=== PATIENT | female | born 1960 | race Caucasian/White ===

== ENCOUNTER 2016-04-15 11:42 | Outpatient (CLI) | payer MEDICARE, OTHER ==
[2016-04-15 12:02] LABS: #Basophils 0.2 thou/uL (0.0-0.2); #Eosinphils 0.1 thou/uL (0.0-0.7); #Lymphocytes 1.3 thou/uL (1.20-3.40); %Basophils 1.6 % (0.0-1.0); %Eosinophils 0.5 % (0.0-10.0); %Monocytes 7.6 % (0.0-10.0); Hematocrit 27.9 % (36.0-47.0); Mean Platelet Volume 8.2 fL (7.4-10.4); Red Blood Cell (RBC) Count 2.88 mill/uL (4.20-5.40); White Blood Cell (WBC) Count 13.6 thou/uL (4.8-10.8)
[2016-04-15 13:01] LABS: ALT (SGPT) 10 U/L (0-55); AST (SGOT) 8 U/L (5-34); Alkaline Phosphatase 111 U/L (40-150); Anion Gap 20 mmol/L (10-20); BUN (Urea Nitrogen) 57 mg/dL (9.8-20.1); Bilirubin, Total 0.4 mg/dL (0.2-1.2); Calc. Creatinine Clearance 0 mL/min (70-130); Calcium 7.2 mg/dL (7.8-10.44); Carbon Dioxide 18 mmol/L (22-29); Chloride 105 mmol/L (98-107); Estimated GFR-MDRD 7; Globulin 2.9 g/dL (2.4-3.5); Protein, Total 6.9 g/dL (6.0-8.3)
== END 2016-04-15 11:43 | disposition home or self-care (01) ==
LOC: HPCALD 11:42
PROVIDERS: ATTEND Physician Assistant
DX: N18.9 Chronic kidney disease, unspecified (principal); I50.9 Heart failure, unspecified
CPT/HCPCS: 36415; 80053; 83880; 85025

== ENCOUNTER 2016-05-17 08:59 | Emergency (ER) | payer MEDICARE, OTHER ==
[2016-05-17 10:25] LABS: #Basophils 0.1 thou/uL (0.0-0.2); #Lymphocytes 0.8 thou/uL (1.20-3.40); #Monocytes 0.7 thou/uL (0.11-0.59); #Neutrophils 5.8 thou/uL (1.40-6.50); %Basophils 1.1 % (0.0-1.0); Hematocrit 23.3 % (36.0-47.0); Mean Platelet Volume 8.7 fL (7.4-10.4); White Blood Cell (WBC) Count 7.3 thou/uL (4.8-10.8)
[2016-05-17 10:39] LABS: ALT (SGPT) 6 U/L (0-55); AST (SGOT) 12 U/L (5-34); Alkaline Phosphatase 154 U/L (40-150); Anion Gap 15 mmol/L (10-20); BUN (Urea Nitrogen) 34 mg/dL (9.8-20.1); Bilirubin, Total 0.6 mg/dL (0.2-1.2); Calc. Creatinine Clearance 0 mL/min (70-130); Calcium 6.8 mg/dL (7.8-10.44); Carbon Dioxide 27 mmol/L (22-29); Chloride 92 mmol/L (98-107); Estimated GFR-MDRD 9; Globulin 3.2 g/dL (2.4-3.5); Protein, Total 6.4 g/dL (6.0-8.3)
[2016-05-17 10:53] LABS: Lipase Less than 4 U/L (8-78)
[2016-05-17 11:48] LABS: Bilirubin Negative (Negative); Blood, Urine Large (Negative); Glucose, Urine (Dipstick) Negative (Negative); Ketone, Urine 15 mg/dL (Negative); Nitrite Negative (Negative); Protein, Urine (Dipstick) > or equal to 300 mg/dL (Neg-Trace); Urobilinogen 0.2 mg/dL (0.2-1.0)
[2016-05-17 11:56] LABS: Bacteria/HPF 1+ HPF (None Seen); RBC/HPF None Seen HPF (0-3); Squamous Epithelial 0-3 HPF (0-3); WBC/HPF 0-3 HPF (0-3)
== END 2016-05-17 12:38 | disposition home or self-care (01) ==
LOC: BURERS 08:59
DX: R19.7 Diarrhea, unspecified (principal); K21.9 Gastro-esophageal reflux disease without esophagitis; E11.9 Type 2 diabetes mellitus without complications; G40.909 Epilepsy, unspecified, not intractable, without status epilepticus; J45.909 Unspecified asthma, uncomplicated; E03.9 Hypothyroidism, unspecified; E78.5 Hyperlipidemia, unspecified; I10 Essential (primary) hypertension; J44.9 Chronic obstructive pulmonary disease, unspecified; Z87.891 Personal history of nicotine dependence; Z79.82 Long term (current) use of aspirin; Z79.899 Other long term (current) drug therapy
CPT/HCPCS: 36416; 51701; 80053; 81003; 81015; 83690; 85025; 87086; 96360; 96361; A4353

== ENCOUNTER 2016-06-09 16:56 | Emergency (ER) | payer MEDICARE, OTHER ==
[2016-06-09 17:39] LABS: #Basophils 0.2 thou/uL (0.0-0.2); #Lymphocytes 1.1 thou/uL (1.20-3.40); #Monocytes 0.8 thou/uL (0.11-0.59); #Neutrophils 6.7 thou/uL (1.40-6.50); %Basophils 1.9 % (0.0-1.0); %Lymphocytes 12.7 % (21.0-51.0); %Monocytes 9.4 % (0.0-10.0); Hemoglobin 8.1 g/dL (12.0-16.0); Mean Corpuscular HGB CONC 31.5 g/dL (32.0-36.0); Mean Corpuscular Hemoglobin 30.6 pg (27.0-31.0); Mean Corpuscular Volume 97.1 fl (81.0-99.0); Mean Platelet Volume 7.8 fL (7.4-10.4); Platelet Count 157 thou/uL (130-400); RBC Distribution Width 18.3 % (11.5-14.5); Red Blood Cell (RBC) Count 2.65 mill/uL (4.20-5.40); White Blood Cell (WBC) Count 8.8 thou/uL (4.8-10.8)
[2016-06-09 17:56] LABS: ALT (SGPT) 7 U/L (0-55); AST (SGOT) 12 U/L (5-34); Alkaline Phosphatase 96 U/L (40-150); Anion Gap 17 mmol/L (10-20); BUN (Urea Nitrogen) 31 mg/dL (9.8-20.1); Bilirubin, Total 0.4 mg/dL (0.2-1.2); Calc. Creatinine Clearance 0 mL/min (70-130); Calcium 7.4 mg/dL (7.8-10.44); Carbon Dioxide 25 mmol/L (22-29); Chloride 97 mmol/L (98-107); Estimated GFR-MDRD 9; Globulin 3.4 g/dL (2.4-3.5); Glucose 110 mg/dL (70-105); Potassium 4.4 mmol/L (3.5-5.1); Protein, Total 7.4 g/dL (6.0-8.3); Sodium 135 mmol/L (136-145)
[2016-06-09] MEDS ORDERED: cefTRIAXone\\ROCEPHIN 1 GM VIAL ONE (18:46)
[2016-06-09] MEDS ORDERED: Sodium Chloride 0.9% 100 ML ONE (18:46)
--- NOTE | 2016-06-09 22:20 | RAD ---
PORTABLE CHEST 06/09/16 Comparison is made with the 06/08 study. There is a new right basilar opacity suggestive of an infiltrate of an early pneumonia. The left catherine g is relatively clear. The heart size is unchanged. A large lumen catheter is seen on the right side and a left subclavian line is seen with its tip in the vicinity of the distal superior vena cava. T here might be some very slight prominence of the vasculature. IMPRESSION: 1. New right basilar infiltrate suggestive of pneumonia. 2. Question of slight vascular congestion. POS: HOME
== END 2016-06-09 20:07 | disposition short-term general hospital (02) ==
LOC: BURERS 16:56
DX: S81.001D Unspecified open wound, right knee, subsequent encounter (principal); R65.10 Systemic inflammatory response syndrome (SIRS) of non-infectious origin without acute organ dysfunction; I12.9 Hypertensive chronic kidney disease with stage 1 through stage 4 chronic kidney disease, or unspecified chronic kidney disease; N18.9 Chronic kidney disease, unspecified; D63.1 Anemia in chronic kidney disease; J18.9 Pneumonia, unspecified organism; K21.9 Gastro-esophageal reflux disease without esophagitis; E11.9 Type 2 diabetes mellitus without complications; G40.909 Epilepsy, unspecified, not intractable, without status epilepticus; J45.909 Unspecified asthma, uncomplicated; E03.9 Hypothyroidism, unspecified; E78.5 Hyperlipidemia, unspecified; F17.210 Nicotine dependence, cigarettes, uncomplicated; Z79.82 Long term (current) use of aspirin; Z79.899 Other long term (current) drug therapy; W19.XXXA Unspecified fall, initial encounter
CPT/HCPCS: 71010; 80053; 83605; 85025; 87040; 94760; 96365; J0696; J7050

== ENCOUNTER 2016-12-23 02:25 | Outpatient (CLI) | payer MEDICARE, OTHER | END 2016-12-23 02:26 | disposition home or self-care (01) | LOC: BURLABSP 02:25 | PROVIDERS: ATTEND Clinical Nurse Specialist Medical-Surgical | DX: I48.0 Paroxysmal atrial fibrillation (principal) | CPT/HCPCS: 36415; 84443 ==

== ENCOUNTER 2017-02-03 04:46 | Emergency (ER) | payer MEDICARE, OTHER ==
[2017-02-03] MEDS ORDERED: Furosemide 40 MG TAB ONE (05:31)
[2017-02-03] MEDS ORDERED: Furosemide 40 MG/4 ML VIAL ONE (05:31)
[2017-02-03 05:52] LABS: ALT (SGPT) 16 U/L (8-55); AST (SGOT) 15 U/L (5-34); Albumin 4.2 g/dL (3.5-5.0); Alkaline Phosphatase 75 U/L (40-150); Anion Gap 17 mmol/L (10-20); BUN (Urea Nitrogen) 24 mg/dL (9.8-20.1); Bilirubin, Total 0.6 mg/dL (0.2-1.2); CKMB 1.8 ng/mL (0-6.6); Calc. Creatinine Clearance 0 mL/min (70-130); Carbon Dioxide 30 mmol/L (22-29); Chloride 95 mmol/L (98-107); Estimated GFR-MDRD 15; Globulin 3.8 g/dL (2.4-3.5); Glucose 121 mg/dL (70-105); Potassium 4.2 mmol/L (3.5-5.1); Sodium 138 mmol/L (136-145); Troponin I Less than 0.010 ng/mL (< 0.028)
[2017-02-03 06:21] LABS: Hemoglobin 11.3 g/dL (12.0-16.0); Mean Corpuscular HGB CONC 31.6 g/dL (32.0-36.0); Mean Corpuscular Hemoglobin 33.4 pg (27.0-31.0); Platelet Count 179 thou/uL (130-400); RBC Distribution Width 16.1 % (11.5-14.5); Red Blood Cell (RBC) Count 3.39 mill/uL (4.20-5.40); White Blood Cell (WBC) Count 5.3 thou/uL (4.8-10.8)
[2017-02-03 06:24] LABS: Band 3 % (5-11); Eosinophils 3 % (0-10); Lymphocytes 15 % (21-51); Manual Diff?? YES; Monocytes 17 % (0-10); Neutrophil 62 % (42-75); PLT Morphology Comment Appears Adequate
[2017-02-03 06:25] LABS: Anisocytosis SLIGHT = 6-15 cells (100X) (0-5/hpf); MDiff Complete? YES; Macrocytosis SLIGHT = 6-15 cells (100X) (0-5/hpf)
[2017-02-03] MEDS ORDERED: AMOXicillin 250 MG CAP ONE (06:32)
[2017-02-03] MEDS ORDERED: Benzonatate 100 MG CAP ONE (06:32)
--- NOTE | 2017-02-03 07:10 | RAD ---
PORTABLE CHEST: Date: 02/03/17 An AP portable film at 0444 hours is compared with a 12/16/16 study from [facility] al. FINDINGS: Much of the edema seen previously has resolved. There is still some interstitial change throughout th e lungs such that there might be mild edema. No large effusions are seen. No focal consolidations not ed. A multi lumen catheter is present on the right as before. Cardiomegaly is about the same. IMPRESSION: Improvement in pulmonary edema since the older study, but still some residual interstitial change. POS: HOME
[2017-02-03 16:22] LABS: RBC Morphology Normal
== END 2017-02-03 06:42 | disposition home or self-care (01) ==
LOC: BURERS 04:46
DX: J20.9 Acute bronchitis, unspecified (principal); I50.9 Heart failure, unspecified; I48.91 Unspecified atrial fibrillation; E11.9 Type 2 diabetes mellitus without complications; E78.5 Hyperlipidemia, unspecified; Z99.2 Dependence on renal dialysis; F41.9 Anxiety disorder, unspecified; Z87.891 Personal history of nicotine dependence
CPT/HCPCS: 71010; 80053; 82553; 83880; 84484; 85025; 93005; 96374; J1940